=== PATIENT | female | born 1955 | race Caucasian/White ===

== ENCOUNTER → 2025-03-23 12:11 | Outpatient (REF) | payer MEDICARE, BC, SELFPAY | LOC: HWRAD 12:11 | PROVIDERS: ATTENDING PHYSICIAN Student in an Organized Health Care Education/Training Program | DX: M76.62 Achilles tendinitis, left leg (principal) | CPT/HCPCS: 73610 ==

== ENCOUNTER → 2025-04-09 12:45 | Outpatient (REF) | payer MEDICARE, BC, SELFPAY | LOC: HWRAD 12:45 | PROVIDERS: ATTENDING PHYSICIAN Student in an Organized Health Care Education/Training Program | DX: N13.30 Unspecified hydronephrosis (principal) | CPT/HCPCS: 76770 ==